=== PATIENT | male | born 1975 | race African-American/Black ===

== ENCOUNTER 2020-09-04 09:27 | Emergency (ER) | payer SELFPAY ==
[2020-09-04] MEDS ORDERED: ACETAMINOPHEN 325 MG TABLET PO ONE (10:21)
[2020-09-04] MEDS ORDERED: LIDOCAINE 5% (700 MG) TRANSDERMAL ADH..PATCH TP ONE (10:21)
--- NOTE | 2020-09-04 10:38 | ER Document Report ---
ED Medical Screen (RME) - General Chief Complaint: Headache Stated Complaint: ARM/EYE PAIN Time Seen by Provider: 09/04/20 10:20 Mode of Arrival: Ambulatory Information source: Patient Notes: Patient presents complaining of left sided neck and upper back pain for the past month that has worsened recently. Patient does complain of pain going into the left upper extremity as well. Patient states that he has had sharp pain behind the left eye and to the left side of the head. Patient states he is not able to see out of the left eye due to a previous injury. Patient denies any fever, sonia sea or vomiting. Patient is concerned that he needs x-rays to further evaluate the cause of his pain symptoms today. I have greeted and performed a rapid initial assessment of this patient. A comprehensive ED assessment and evaluation of the patient, analysis of test results and completion of the medical decision making process will be conducted by additional ED providers. TRAVEL OUTSIDE OF THE [place] IN LAST 30 DAYS: No - Related Data Allergies/Adverse Reactions: No Known Drug Allergies Allergy (Verified 01/29/13 13:10) Past Medical History - Past Medical History Cardiac Medical History: Reports: Hx Hypertension - has been told in past BP darya -- states it goes up when he is in pain. Past Surgical History: Reports: Hx Orthopedic Surgery - left upper arm - Immunizations Hx Diphtheria, Pertussis, Tetanus Vaccination: Yes Physical Exam - Vital signs Vitals: Temp Pulse Resp BP Pulse Ox 98.8 F 70 16 167/101 H 100 09/04/20 09:49 09/04/20 09:49 09/04/20 09:49 09/04/20 09:49 09/04/20 09:49 - General General appearance: Appears well, Alert Notes: No meningismus, left trapezius muscle tenderness with spasm Course - Vital Signs Vital signs: Temp Pulse Resp BP Pulse Ox 98.8 F 70 16 167/101 H 100 09/04/20 09:49 09/04/20 09:49 09/04/20 09:49 09/04/20 09:49 09/04/20 09:49
--- NOTE | 2020-09-04 10:56 | RADIOLOGY REPORT (SQ) ---
EXAM DESCRIPTION: T SPINE AP/LAT IMAGES COMPLETED DATE/TIME: 09/04/2020 10:48 am REASON FOR STUDY: neck/upper back pain, LUE pain COMPARISON: None. NUMBER OF VIEWS: Two views. TECHNIQUE: AP and lateral radiographic images acquired of the thoracic spine. LIMITATIONS: None. FINDINGS: MINERALIZATION: Normal. ALIGNMENT: Mild scoliosis with concavity toward the left. This is less than 5. VERTEBRAE: No fracture or bone lesion. Maintained height, normal segmentation. DISCS: Mild disc space narrowing in the lower dorsal spine. HARDWARE: None in the spine. MEDIASTINUM AND SOFT TISSUES: Normal heart size and aortic contour. No soft tissue abnormality. VISUALIZED LUNG ORDONEZ: Clear. OTHER: No other significant finding. IMPRESSION: NO SIGNIFICANT RADIOGRAPHIC FINDING IN THE THORACIC SPINE. TECHNICAL DOCUMENTATION: JOB ID: [id number] 2010 [email or web address]- All Rights Reserved Reading location - IP/workstation name: [email or web address]
--- NOTE | 2020-09-04 10:57 | RADIOLOGY REPORT (SQ) ---
EXAM DESCRIPTION: CERV SP 4 OR 5 VIEWS IMAGES COMPLETED DATE/TIME: 09/04/2020 10:48 am REASON FOR STUDY: neck/upper back pain, LUE pain COMPARISON: None. NUMBER OF VIEWS: Five views including obliques. TECHNIQUE: AP, lateral, obliques and odontoid radiographic images acquired of the cervical spine. LIMITATIONS: None. FINDINGS: MINERALIZATION: Normal. ALIGNMENT: Grade 1 retrolisthesis of C3 on C4. Slight retrolisthesis of C4 on C5. VERTEBRAE: Maintained height. No fracture or worrisome bone lesion. DISCS: Multilevel disc space narrowing with osteophytes. POSTERIOR ELEMENTS: Pedicles and facets are intact. No posterior arch defects. Facet arthropathy is present. FORAMINA: Foramina narrowing on the left at C3-4. Foraminal narrowing on the right at C3-4 as well. HARDWARE: None in the spine. PARASPINAL SOFT TISSUES: Normal. OTHER: No other significant finding. IMPRESSION: SPONDYLOSIS WITHOUT BONE LESION OR FRACTURE. TECHNICAL DOCUMENTATION: JOB ID: [id number] 2010 [employer]- All Rights Reserved Reading location - IP/workstation name: [email or web address]
--- NOTE | 2020-09-04 13:26 | ER Document Report ---
ED General - General Chief Complaint: Headache Stated Complaint: ARM/EYE PAIN Time Seen by Provider: 09/04/20 10:20 Primary Care Provider: [facility] [Provider Group] - Follow up as needed ZENAIDA JHA MD [COMMUNITY BASED STAFF] - Follow up as needed Mode of Arrival: Ambulatory TRAVEL OUTSIDE OF THE [place] IN LAST 30 DAYS: No - HPI Notes: 45-year-old male presents with neck pain. Patient has been having pain to the left side of his neck and upper back for the past 1 month. It is intermittent and sharp. Is worse by turning his head to the left. Sometimes the pain radiates down his left arm and he feels some tingling in his fingertips. He denies any known injury. He has taken ibuprofen which does provide some relief. He has never had this worked up before. He additionally states that he is having a left sided headache which is behind his left eye, he states that this has been going on for years and will intermittently flare up. He had an injury to his left eye and lost his vision, he states that he was told to wear an eye patch which would help with the pain by decreasing light, however he does not wear the eye patch. - Related Data Allergies/Adverse Reactions: No Known Drug Allergies Allergy (Verified 01/29/13 13:10) Past Medical History - General Information source: Patient - Social History Smoking Status: Never Smoker Family History: Reviewed & Not Pertinent - Past Medical History Cardiac Medical History: Reports: Hx Hypertension - has been told in past BP darya -- states it goes up when he is in pain. Past Surgical History: Reports: Hx Orthopedic Surgery - left upper arm - Immunizations Hx Diphtheria, Pertussis, Tetanus Vaccination: Yes Review of Systems - Review of Systems Constitutional: No symptoms reported EENT: No symptoms reported Cardiovascular: No symptoms reported Respiratory: No symptoms reported Gastrointestinal: No symptoms reported Genitourinary: No symptoms reported Male Genitourinary: No symptoms reported Musculoskeletal: Back pain, Neck pain Skin: No symptoms reported Hematologic/Lymphatic: No symptoms reported Neurological/Psychological: denies: Tingling - Denies symptoms currently Physical Exam - Vital signs Vitals: Temp Pulse Resp BP Pulse Ox 98.8 F 70 16 167/101 H 100 09/04/20 09:49 09/04/20 09:49 09/04/20 09:49 09/04/20 09:49 09/04/20 09:49 - General General appearance: Appears well, Alert In distress: None - HEENT Head: Normocephalic, Atraumatic Conjunctiva: No: Injected Extraocular movements intact: Yes Neck: Other - Patient has mild tenderness to the left lateral musculature. He has full range of motion of neck, no midline tenderness. 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 On exam he is neurologically intact, preserved strength and sensation in his upper extremities. He does have some tenderness to the neck, however range of motion is preserved. He had an x- ray done through the triage process which does show some spondylosis and foraminal stenosis. Discussed with patient with these findings represent. Ad ditionally has had left eye pain for years, no acute changes in this. Discussed with patient to continue ibuprofen and can trial Flexeril. Discussed the importance of following up with a primary care doctor as he may need to see a spinal surgeon in the future, he verbalized understanding. Return precautions given, stable at time of discharge. - Vital Signs Vital signs: Temp Pulse Resp BP Pulse Ox 98.6 F 68 16 165/99 H 100 09/04/20 14:14 09/04/20 14:14 09/04/20 14:14 09/04/20 14:14 09/04/20 14:14 - Diagnostic Test Radiology reviewed: Image reviewed, Reports reviewed Discharge - Discharge Clinical Impression: Neural foraminal stenosis of cervical spine, Spondylosis Disposition: HOME, SELF-CARE Additional Instructions: Please establish care with a primary care doctor, you have been provided multiple resources for PCP. He may need to see a spinal surgeon in the future. There is evidence bony overgrowth causing some nerve irritation in your neck. You may continue ibuprofen for pain. You also may trial use of Flexeril which is a muscle relaxer, do not drive or operate heavy machinery after taking this medication. Return to the emergency department for any concerning worsening symptoms. Prescriptions: Cyclobenzaprine HCl [Flexeril 10 mg Tablet] 10 mg PO TIDP PRN #60 tab PRN Reason: Ibuprofen [Ibu] 800 mg PO TID PRN #60 tablet PRN Reason: Referrals: ZENAIDA JHA MD [COMMUNITY BASED STAFF] - Follow up as needed [facility] [Provider Group] - Follow up as needed
[2020-09-04] MEDS ORDERED: IBUPROFEN 800 MG TABLET PO ONE (13:45)
[2020-09-04 14:15] VITALS: BP 165/99
== END 2020-09-04 14:14 | disposition home or self-care (01) ==
LOC: ER 09:27
DX: M48.02 Spinal stenosis, cervical region (principal); M47.9 Spondylosis, unspecified; M54.6 Pain in thoracic spine; R51.9 Headache, unspecified; M54.2 Cervicalgia; H57.12 Ocular pain, left eye; H54.62 Unqualified visual loss, left eye, normal vision right eye; I10 Essential (primary) hypertension
CPT/HCPCS: 72050; 72070; 99284

== ENCOUNTER 2020-10-30 14:32 | Emergency (ER) | payer OTHER ==
[2020-10-30] MEDS ORDERED: PREDNISONE 20 MG TABLET PO ONE (15:14)
[2020-10-30] MEDS ORDERED: NAPROXEN 250 MG TABLET PO ONE (15:15)
--- NOTE | 2020-10-30 16:33 | ER Document Report ---
HPI - HPI Patient complains to provider of: Back pain Time Seen by Provider: 10/30/20 15:09 Pain Level: 3 Context: 45-year-old male with a past medical history significant for hypertension not currently on medications also with chronic upper back pain. Presents to the emergency room complaint of a flareup of his upper back pain for the past week he denies any new trauma or injury. Similar to previous pain. States he has been taking ibuprofen with minimal relief. States he has been prescribed Flexeril in the past with good relief. Currently without a primary care physician chest pain, shortness of breath, no difficulty breathing. To the emergency room. Last dose of ibuprofen 4 AM this morning Associated Symptoms: None Exacerbated by: Movement Relieved by: Denies Similar symptoms previously: Yes - History of chronic upper back pain Recently seen / treated by doctor: No - ROS Systems Reviewed and Negative: Yes All other systems reviewed and negative - CONSTITUTIONAL Constitutional: DENIES: Fever, Chills - NEURO Neurology: DENIES: Weakness - CARDIOVASCULAR Cardiovascular: DENIES: Chest pain - RESPIRATORY Respiratory: DENIES: Trouble Breathing - MUSCULOSKELETAL Musculoskeletal: REPORTS: Back Pain - DERM Skin Color: Normal Skin Problems: None Past Medical History - General Information source: Patient - Social History Smoking Status: Current Every Day Smoker Frequency of alcohol use: None Drug Abuse: Marijuana Family History: Reviewed & Not Pertinent - Past Medical History Cardiac Medical History: Reports: Hx Hypertension - has been told in past BP darya -- states it goes up when he is in pain. Past Surgical History: Reports: Hx Orthopedic Surgery - left upper arm - Immunizations Hx Diphtheria, Pertussis, Tetanus Vaccination: Yes Vertical Provider Document - CONSTITUTIONAL Agree With Documented VS: Yes Exam Limitations: No Limitations - INFECTION CONTROL TRAVEL OUTSIDE OF THE [place] IN LAST 30 DAYS: No - HEENT HEENT: Atraumatic, Normocephalic - NECK Neck: Normal Inspection, Supple - RESPIRATORY Respiratory: Breath Sounds Normal, No Respiratory Distress - CARDIOVASCULAR Cardiovascular: Regular Rate, Regular Rhythm, No Murmur - BACK Back: Abnormal Inspection - There is tenderness on palpation from T4-T6, tenderness on palpation to the posterior left scapula. Tenderness over the left trapezius muscle, no step-offs, no obvious deformities noted. 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 Neurovascularly intact. Course - Re-evaluation Re-evalutation: 10/30/20 16:28 Patient is resting comfortably with decreased pain. Blood pressure has improved to 148/96. Patient is asymptomatic with his elevated blood pressure. No chest pain, no shortness of breath, no difficulty breathing. He was counseled on the importance of an outpatient follow-up with a primary care physician for his elevated blood pressure as well as his persistent back pain. Counseled patient that he can always follow-up with orthopedics for his back pain. Patient will be provided with on-call physician for take medications as prescribed. Patient was given strict return to the emergency room guidelines. Return for any new or worsening symptoms. All questions were answered. Patient verbalized unde rstanding and agrees with plan of care. 10/30/20 17:13 - Vital Signs Vital signs: Temp Pulse Resp BP Pulse Ox 98.0 F 78 22 H 143/120 H 100 10/30/20 14:42 10/30/20 14:42 10/30/20 14:42 10/30/20 14:42 10/30/20 14:42 - Laboratory Results Critical Laboratory Results Reviewed: No Critical Results - Radiology Results Critical Radiology Results Reviewed: No Critical Results Discharge - Discharge Clinical Impression: Chronic upper back pain, Elevated blood pressure reading without diagnosis of hypertension Condition: Stable Disposition: HOME, SELF-CARE Instructions: Chronic Back Pain ([facility]), High Blood Pressure ([facility]) Additional Instructions: You have been seen in the Emergency Department (ED) today for back pain. Your workup and exam have not shown any acute abnormalities and you are likely suffering from muscle strain or possible problems with your discs, but there is no treatment that will fix your symptoms at this time. Please take the Flexeril, prednisone, naproxen that has been prescribed as directed. You should also purchase a local lidocaine cream such as "aspercreme with lidocaine" and use per bottle instructions to the affected area. Apply heat to the area as often as you are able. Continue to keep active and avoid prolonged periods of bed rest. You need to follow-up with a primary care physician for your persistent elevated blood pressure as well as for your chronic upper back pain Please follow up with your doctor as soon as possible regarding today's ED visit and your back pain. Return to the ED for worsening back pain, fever, weakness or numbness of either leg, or if you develop either (1) an inability to urinate or have bowel movements, or (2) loss of your ability to control your bathroom functions (if you start having "accidents"), or if you develop other new symptoms that concern you.concern you. Prescriptions: Prednisone [Deltasone 20 mg Tablet] See Protocol PO DAILY 9 Days #15 tablet Cyclobenzaprine HCl [Flexeril 10 mg Tablet] 10 mg PO TIDP PRN #15 tab PRN Reason: Naproxen 500 mg PO BID PRN #14 tablet PRN Reason: Forms: Elevated Blood Pressure Referrals: GAMALIEL SINGH DO [ACTIVE STAFF] - Follow up as needed
[2020-10-30 16:41] VITALS: BP 148/96
== END 2020-10-30 16:41 | disposition home or self-care (01) ==
LOC: ER 14:32
DX: G89.29 Other chronic pain (principal); M54.9 Dorsalgia, unspecified; R03.0 Elevated blood-pressure reading, without diagnosis of hypertension; F17.200 Nicotine dependence, unspecified, uncomplicated; F12.10 Cannabis abuse, uncomplicated
CPT/HCPCS: 99283; J7512